=== PATIENT | male | born 1960 | race Caucasian/White ===

== ENCOUNTER 2016-03-21 04:17 | Emergency (ER) | payer BC ==
[2016-03-21] MEDS ORDERED: METOCLOPRAMIDE 10 MG/2 ML VIAL ONE (06:29)
[2016-03-21] MEDS ORDERED: DIPHENHYDRAMINE 50 MG/ML VIAL ONE (06:29)
[2016-03-21] MEDS ORDERED: KETOROLAC 30 MG/ML VIAL ONE (07:23)
== END 2016-03-21 07:55 | disposition home or self-care (01) ==
LOC: ER 04:17
DX: R51 Headache (principal)
CPT/HCPCS: 70450; 96374; 96375